=== PATIENT | male | born 1945 | race Caucasian/White ===

== ENCOUNTER 2025-08-13 10:40 | Emergency (ER) | payer MEDICARE ==
[2025-08-13 11:32] LABS: BASOPHILS ABSOLUTE AUTO 0.02 10^3/uL (0.00-0.10); BASOPHILS PERCENT AUTO 0.2 % (0.0-1.0); EOSINOPHILS ABSOLUTE AUTO 0.10 10^3/uL (0.10-0.30); EOSINOPHILS PERCENT AUTO 1.2 % (1.0-3.0); IMMATURE GRAN ABSOLUTE AUTO 0.01 10^3/uL (0.00-0.04); IMMATURE GRAN PERCENT AUTO 0.1 % (0.0-0.4); LYMPHOCYTES ABSOLUTE AUTO 1.05 10^3/uL (1.00-4.00); LYMPHOCYTES PERCENT AUTO 12.5 % (20.0-40.0); MEAN PLATELET VOLUME 9.2 fL (7.4-10.4); MONOCYTES ABSOLUTE AUTO 0.79 10^3/uL (0.10-0.80); MONOCYTES PERCENT AUTO 9.4 % (2.0-8.0); NEUTROPHILS ABSOLUTE AUTO 6.43 10^3/uL (2.50-7.00); NEUTROPHILS PERCENT AUTO 76.6 % (50.0-70.0); PLATELET COUNT,PLT 276 10^3/uL (150-400); RED BLOOD CELL COUNT 4.76 10^6/uL (4.50-6.00); RED CELL DISTRIBUTION WIDTH 14.1 % (11.5-14.5); WHITE BLOOD CELL COUNT,WBC 8.40 10^3/uL (5.00-10.00)
[2025-08-13 11:46] LABS: ALANINE AMINOTRANSFERASE,ALT 36 U/L (14-63); ASPARTATE AMNIOTRANSFERASE,AST 86 U/L (15-37); BILIRUBIN TOTAL 2.1 mg/dL (0.2-1.0); BLOOD UREA NITROGEN,BUN 19 mg/dL (7-18); CARBON DIOXIDE,CO2 29.1 mmol/L (21.0-32.0); CHLORIDE,CL 108 mmol/L (98-107); CREATININE 0.93 mg/dL (0.51-1.17); GLUCOSE RANDOM 134 mg/dL (70-140); POTASSIUM,K 3.6 mmol/L (3.5-5.1); PROTEIN TOTAL,TP 6.6 g/dL (6.4-8.2); SODIUM,NA 146 mmol/L (136-145)
[2025-08-13 11:52] LABS: ESTIMATED GFR 82 mL/min (>=60)
[2025-08-13 12:40] LABS: GLUCOSE,URINE NEGATIVE (NEGATIVE); OCCULT BLOOD,URINE LARGE (NEGATIVE)
[2025-08-13 12:41] LABS: APPEARANCE,URINE TURBID (CLEAR); EPITHELIAL CELLS,URINE RARE /LPF
[2025-08-16] MEDS ORDERED: hydrALAZINE 20 MG/ML SDV IVPUSH ONE ×2 (21:18→21:35)
[2025-08-16] MEDS ORDERED: Labetalol 100 MG/20 ML MDV IVPUSH ONE (21:40)
== END 2025-08-13 15:22 ==
LOC: KA.ED 10:45
DX: S06.0XAA Concussion with loss of consciousness status unknown, initial encounter (principal); N39.0 Urinary tract infection, site not specified; Z88.8 Allergy status to other drugs, medicaments and biological substances; Z79.899 Other long term (current) drug therapy; W05.0XXA Fall from non-moving wheelchair, initial encounter
CPT/HCPCS: 36415; 51702; 70450; 71045; 80053; 81001; 85025; 87086; 87088; 87186; 93010; 96361; 96374; 99284; 99285-25; A4315; J0696; J7030